=== PATIENT | male | born 1990 | race Caucasian/White ===

== ENCOUNTER 2019-01-29 01:37 | Emergency (ER) | payer OTHER ==
[~2019-01-29] VITALS: Ht 185.4 cm; Wt 68.2 kg
[~2019-01-29 01:37] MED LIST: IBUP-1561 PO; MAG-19 PO; ONDA4TAB14 PO
[2019-01-29 01:44] VITALS: Ht 185.4 cm; Wt 68.2 kg
[2019-01-29] MEDS ORDERED: morphine 4 MG/ML VIAL IV STA (05:38)
[2019-01-29] MEDS ORDERED: ONDANSETRON 4 MG INJ IV STA (05:38)
[2019-01-29] MEDS ORDERED: KETOROLAC 30 MG INJ IV STA (05:38)
[2019-01-29] MEDS ORDERED: SOD CHLORIDE 0.9% 1,000 ML IV STA (05:38)
[2019-01-29] MEDS ORDERED: SOD CHLORIDE 0.9% 100 ML ONE (07:36)
[2019-01-29] MEDS ORDERED: IOHEXOL 300MG/ML 150 ML BTL ONE (07:36)
--- NOTE | 2019-01-29 08:24 | ERD ---
ER Documentation Chief Complaint Chief Complaint bib ra 90 c/o abdominal pain x 3 days. also c/o vomiting HPI 28-year-old male presented to ED for abdominal pain nausea vomiting x3 days. Patient was initially seen by the BERKLEY Zepeda and was given Zofran and Toradol for nausea and pain. Upon my initial the patient states this pain is never happened before. Patient has bizarre behavior and appears to be under the influence of an unknown substance. Patient denies drug or alcohol ingestion. Patient has been avoiding to answer questions and appears agitated when trying to attempt to get a thorough history. The patient is in no acute respiratory distress denies allergies to medications. Patient denies psych history. Mike jara denies suicidal or homicidal ideation. ROS All systems reviewed and are negative except as per history of present illness. Medications Home Meds Active Scripts Magaldrate/Simethicone* (Mylanta*) 355 Ml Susp, 30 ML PO QID PRN for GASTROINTE STINAL UPSET, #1 BOTTLE Prov:MONTY JACOBS PA-C 01/29/19 Ondansetron (Ondansetron Odt) 4 Mg Tab.rapdis, 4 MG PO Q6H PRN for NAUSEA AND/OR VOMITING, #10 TAB Prov:MONTY JACOBS PA-C 01/29/19 Ibuprofen* (Motrin*) 400 Mg Tab, 400 MG PO Q6, #30 TAB Prov:MONTY JACOBS PA-C 01/29/19 Allergies Allergies: Coded Allergies: No Known Drug Allergies (Verified Allergy, Unknown, 01/29/19) PMhx/Soc Medical and Surgical Hx: Unable to obtain Hx Miscellaneous Medical Probl: Yes (POOR HISTORIAN ) Hx Alcohol Use: Yes Hx Substance Use: Yes (METH) Hx Tobacco Use: Yes Smoking Status: Current every day smoker FmHx Family History: No diabetes, No coronary disease, No other Physical Exam Vitals Vital Signs Date Temp Pulse Resp B/P (MAP) Pulse Ox O2 O2 Flow FiO2 Time Delivery Rate 01/29/19 98.0 76 18 125/75 98 Room Air 11:29 (92) 01/29/19 98.5 90 18 113/73 99 Room Air 08:28 (86) 01/29/19 97.3 102 20 133/70 98 01:44 (91) Physical Exam GENERAL: Moderate distress CHEST: Clear to auscultation bilaterally. There are no rales, wheezes or rhonchi. HEART: Regular rate and rhythm. No murmurs, clicks, rubs or gallops. ABDOMEN: Pain to palpation of the right upper quadrant, pain to palpation the right lower quadrant. Normal bowel sounds. No palpable masses EXTREMITIES: Equal pulses bilaterally. There is no peripheral clubbing, cyanosis or edema. No focal swelling or erythema. Full range of motion. Grossly neurovascularly intact. Result Diagram: 01/29/19 0638 01/29/19 0638 Results 24 hrs Laboratory Tests Test 01/29/19 06:38 01/29/19 08:27 White Blood Count 8.7 10^3/ul Red Blood Count 5.39 10^6/ul Hemoglobin 14.0 g/dl Hematocrit 43.4 % Mean Corpuscular Volume 80.5 fl Mean Corpuscular Hemoglobin 26.0 pg Mean Corpuscular Hemoglobin Concent 32.3 g/dl Red Cell Distribution Width 13.4 % Platelet Count 296 10^3/UL Mean Platelet Volume 9.3 fl Immature Granulocytes % 0.200 % Neutrophils % 68.6 % Lymphocytes % 17.5 % Monocytes % 10.3 % Eosinophils % 3.2 % Basophils % 0.2 % Nucleated Red Blood Cells % 0.0 /100WBC Immature Granulocytes # 0.020 10^3/ul Neutrophils # 6.0 10^3/ul Lymphocytes # 1.5 10^3/ul Monocytes # 0.9 10^3/ul Eosinophils # 0.3 10^3/ul Basophils # 0.0 10^3/ul Nucleated Red Blood Cells # 0.0 10^3/ul Sodium Level 137 mmol/L Potassium Level 3.7 mmol/L Chloride Level 103 mmol/L Carbon Dioxide Level 25 mmol/L Anion Gap 9 Blood Urea Nitrogen 13 mg/dl Creatinine 0.71 mg/dl Est Glomerular Filtrat Rate mL/min > 60 mL/min Glucose Level 107 mg/dl Calcium Level 9.1 mg/dl Total Bilirubin 0.4 mg/dl Direct Bilirubin 0.00 mg/dl Indirect Bilirubin 0.4 mg/dl Aspartate Amino Transf (AST/SGOT) 23 IU/L Alanine Aminotransferase (ALT/SGPT) 24 IU/L Alkaline Phosphatase 67 IU/L Total Protein 6.7 g/dl Albumin 4.0 g/dl Globulin 2.70 g/dl Albumin/Globulin Ratio 1.48 Lipase 67 U/L Urine Color YELLOW Urine Clarity CLEAR Urine pH 5.0 Urine Specific [place] 1.048 Urine Ketones NEGATIVE mg/dL Urine Nitrite NEGATIVE mg/dL Urine Bilirubin NEGATIVE mg/dL Urine Urobilinogen NEGATIVE mg/dL Urine Leukocyte Esterase NEGATIVE Angella/ul Urine Hemoglobin NEGATIVE mg/dL Urine Glucose NEGATIVE mg/dL Urine Total Protein NEGATIVE mg/dl Urine Opiates Screen NEGATIVE Urine Barbiturates NEGATIVE Urine Amphetamines Screen POSITIVE Urine Benzodiazepines Screen NEGATIVE Urine Cocaine Screen NEGATIVE Urine Cannabinoids NEGATIVE Current Medications Medications Dose Sig/[place] Start Time Status Last (Trade) Ordered Route PRN Stop Time Admin Dose Reason Admin Sodium 1,000 ml @ Q1H STAT 01/29/19 DC 01/29/19 Chloride 1,000 mls/hr IV 05:38 06:56 01/29/19 06:37 Morphine 4 mg ONCE STAT 01/29/19 Cancel Sulfate IV 05:38 (morphine) 01/29/19 05:39 Ondansetron 4 mg ONCE STAT 01/29/19 DC 01/29/19 HCl (Zofran IV 05:38 06:38 Inj) 01/29/19 05:40 Ketorolac 30 mg ONCE STAT 01/29/19 DC 01/29/19 Tromethamine IV 05:38 06:39 (Toradol) 01/29/19 05:40 IV Flush 10 ml STK-MED 01/29/19 DC 01/29/19 (NS 10 ml) ONCE .ROUTE 07:36 07:54 01/29/19 07:37 Sodium 100 ml @ ud STK-MED 01/29/19 DC 01/29/19 Chloride ONCE .ROUTE 07:36 07:54 01/29/19 07:37 Iohexol 150 ml STK-MED 01/29/19 DC 01/29/19 (Omnipaque ONCE .ROUTE 07:36 07:54 300mg/ ml) 01/29/19 07:37 Ondansetron 4 mg ONCE STAT 01/29/19 DC 01/29/19 HCl (Zofran ODT 11:34 11:36 Odt) 01/29/19 11:35 Procedures/MDM ED course: Patient has initially seen by BERKLEY Rayo Zofran normal saline ultrasound the gallbladder CT abdomen with contrast UA n.p.o. lipase CMP CBC. Upon my initial evaluation the patient appears to be under the influence of an unknown substance a urine drug screen was initially ordered and the patient refused so a blood drug screen was ordered. chip loft worker consult The patient was stable throughout the ED course. The patient and/or family informed of laboratory and diagnostic imaging results throughout the ED course. Diagnostic imaging: Read by radiologist PROCEDURE: CT Abdomen and Pelvis with contrast. CLINICAL INDICATION: Abdominal pain TECHNIQUE: CT scan of the abdomen and pelvis with contrast was performed on a multi-detector high-resolution CT scanner. The patient was scanned following intravenous administration of 90 ml Omnipaque-300 nonionic contrast. Coronal and sagittal reformatted images obtained from the axial source images. Images were reviewed on a high-resolution PACS workstation. Exam CTDI 6.89 mGy Exam DLP 388.96 mGy-cm DICOM images are available. One or more of the following dose reduction techniques were utilized: 1.) Automated exposure control 2.) Adjustment of the mA +/- kV according to patient's size 3.) Use of iterative reconstruction technique. COMPARISON: None. FINDINGS: Exam is mildly compromised by patient motion. CT abdomen: LOWER THORAX: Lung bases are clear. LIVER AND GALLBLADDER: A metallic coil projects within the right lobe of the liver. The liver and gallbladder are otherwise unremarkable. SPLEEN: Normal. PANCREAS: Normal. ADRENAL GLANDS: Normal. KIDNEYS: The kidneys enhance symmetrically. No hydronephrosis or abnormal perinephric fluid. VASCULATURE: Negative for aortic aneurysm or dissection. LYMPH NODES: No significant retroperitoneal or mesenteric lymphadenopathy. BOWEL AND MESENTERY: Stomach and small bowel are unremarkable. A normal appendix is identified. Moderate volume retained gas and stool within the large bowel. No appreciable thickening of the bowel wall or evidence of inflammation in the mesentery. The bowel is suboptimally assessed due to patient motion. CT pelvis: The urinary bladder is unremarkable. There is no free fluid in the pelvis. No significant pelvic lymphadenopathy. Bones: Regional bones and superficial soft tissues are grossly unremarkable for age. IMPRESSION: 1. No acute process in the imaged abdomen or pelvis. 2. Normal appendix. No pelvic free fluid. 3. Small and large bowel suboptimally assessed due to excessive patient motion. ROCEDURE: US Abdomen. CLINICAL INDICATION: abdominal pain TECHNIQUE: Multiple real-time images were acquired of the patient's right upper quadrant abdomen and retroperitoneum utilizing a high resolution transducer. COMPARISON: None FINDINGS: The liver demonstrates normal echogenicity. The liver is normal in size and no focal solid lesions are seen. The liver measures 15.8 cm in length. The portal vein is patent with normal direction of flow. No intrahepatic biliary dilatation is seen. The gallbladder is contracted. No gallstones are identified within the gallbladder. There is no pericholecystic fluid or gallbladder wall thickening. The common bile duct measures 3 mm in maximal dimension. The visualized portions of the pancreas are unremarkable. The tail of the pancreas is not seen. No free fluid is identified. The right kidney is normal in size, and demonstrate normal echogenicity and cortical thickness. The right kidney measures 10.1 cm in long dimension. There is no evidence of hydronephrosis. There are no kidney stones. RPTAT: AA IMPRESSION: Contracted gallbladder with no evidence of gallstones Procedures: None Medications given in ER: Zofran Toradol Patient tolerated medication well with no adverse reactions. Patient reported improvement in pain. Medical decision making: This is a 28-year-old male who was signed out to me by BERKLEY Zepeda. Patient was seen in the ED for abdominal pain. Initial work-up consisted of a abdominal ultrasound, CT of abdominal pelvis with contrast. Toradol for pain, Zofran for nausea and the patient was given fluids. The patient has remained stable during his entire visit in the ED. Upon my initial reevaluation the patient appears reluctant to give me a history of why he came to the ED. The patient appears to be under the influence of an unknown substance. The patient denies ingesting any drugs or alcohol in the past 24 hours. The patient becomes frustrated with these questions. Initial urine drug screen was ordered but the patient refused to give urine. Eventually we are able to get a urine sample from the patient and tested positive for methamphetamines.I consulted the patient on drug and alcohol abuse. I advised the patient he needs to quit smoking methamphetamines. I advised the patient that most likely his symptoms are due to his methamphetamine use. Patient remained afebrile with vital stable during his ED visit. At this time I have low suspicion for osteomyelitis, epidural abscess . upon reevaluation the patient's abdomen is soft nontender.he patient CBC showed no signs of leukocytosis The CT scan and ultrasound were unremarkable at this time I have low suspicion for appendicitis, cholecystitis, choledocholithiasis, peritonitis, sepsis. The patient was given another dose of Zofran. A hospice social worker consult was done with the patient. The patient had no suicidal homicidal ideations. He was given resources for local shelters. He was given a prescription for Mylanta, Zofran, Motrin for symptoms. Advised the patient that the symptoms worsen return to ER immediately. I advised the patient that he needs establish care with a primary care provider and try to get in this week regarding this visit. The patient is in agreement treatment plan and all questions were answered upon discharge Prescription for home: Mylanta Zofran Motrin I have discussed with the patient proper use and common side effects to expert with the medication . I advised the patient/family to speak with the pharmacist dispensing the medication to be advised of any potential drug interactions with other medication or supplements they may be taking. Discharge: At this time, patient is stable for discharge and outpatient management. I have instructed the patient to follow-up with his\her primary care physician in 1 to 2 days. I have discussed with the patient the possibility of needing to see a specialist for further work-up and imaging studies if symptoms persist. I have instructed the patient to promptly return to the ER for any new or worsening symptoms including increased pain, fever, nausea, vomiting, weakness or LOC. The patient and\or family expressed understanding of and agreement with this plan. All questions were answered. Home care instructions were provided. Disclaimer: Inadvertent spelling and grammatical errors are likely due to EHR\dictation software use and do not reflect on the overall quality of patient care. Also, please note that the electronic time recorded on the note does not necessarily reflect the actual time of the patient encounter. Departure Diagnosis: Primary Impression: Abdominal pain Abdominal location: generalized Qualified Codes: R10.84 - Generalized abdominal pain Condition: Stable MONTY JACOBS PA-C Jan 29, 2019 08:24
[2019-01-29 11:29] VITALS: BP 125/75; PULSE 76; RESP 18
[2019-01-29] MEDS ORDERED: ONDANSETRON (ODT) 4 MG TAB ODT STA (11:34)
== END 2019-01-29 12:02 | disposition home or self-care (01) ==
LOC: FTE 01:37
DX: R10.84 Generalized abdominal pain (principal); F17.210 Nicotine dependence, cigarettes, uncomplicated
CPT/HCPCS: 36415; 74177; 76705; 80053; 80307; 81003; 83690; 85025; 96361; 96374; 96375; J1885; J2405; J7030; Q9967; Z7502; Z7610; J2270